=== PATIENT | female | born 1960 | race Caucasian/White ===

== ENCOUNTER 2017-06-22 05:25 | Inpatient (IN) | payer OTHER ==
[~2017-06-22] VITALS: Ht 167.6 cm; Wt 83.9 kg
[2017-06-22] VITALS (12 sets, daily range): BP systolic 98–135; BP diastolic 48–98
--- NOTE | ~2017-06-22 | EKG ---
[place], [place] ELECTROCARDIOGRAM REPORT NAME: PATRICE AGUILA UNIT #: [id number] ROOM: [facility] DOCTOR: DASHAWN VALENTIN,DONALD BIRTHDATE: [birth year] DOS: 06/23/2017 TIME: 1718 hours IMPRESSION: 1. Sinus rhythm. 2. Lateral ST-T changes. 3. Prolonged QT interval. DONALD TAMEZ MD CM:EKGRPT:ELECTROCARDIOGRAM REPORT [id number] DONALD TAMEZ MD
--- NOTE | ~2017-06-22 | PR ---
[place], [place] PROGRESS NOTE NAME: PATRICE AGUILA UNIT #: [id number] ROOM: 502 DOCTOR: DASHAWN VALENTIN,DONALD BIRTHDATE: [birth year] DOS: 06/23/2017 REASON FOR VISIT: Atrial fibrillation and valvular heart disease. HISTORY OF PRESENT ILLNESS: The patient is feeling better. Denies any chest pain or shortness of breath. No palpitations, no dizziness. No orthopnea, no PND. No nausea, vomiting. No fever and chills. REVIEW OF SYSTEMS: Review of the 8 systems negative except as mentioned above. RHYTHM STRIPS: The patient was in sinus rhythm. PHYSICAL EXAMINATION: VITAL SIGNS: Blood pressure 104/62, pulse 84, respirations 16. GENERAL: Alert, comfortable, in no acute distress. NECK: Supple, no distended neck veins, no carotid bruit. CHEST: Symmetrical, nontender. LUNGS: Clear to auscultation bilaterally. HEART: Regular rhythm, no S3. Grade I-II/ systolic murmur as well as grade 1/6 mid diastolic murmur. ABDOMEN: Nontender. Bowel sounds normal. EXTREMITIES: Showed no edema. Distal pulses are palpable. SKIN: Warm and dry. No cyanosis, no clubbing. NEUROLOGIC: The patient is alert, oriented. No focal neurologic deficit. MEDICATIONS AND ALLERGIES: Reviewed. IMPRESSION: 1. Atrial fibrillation, new onset, in sinus rhythm, CHADS2-VASc score of 2. She was on Coumadin. 2. Valvular heart disease, mild mitral stenosis and phgd-yo-bbwxkmgn mitral regurgitation. 3. Mild LV dysfunction with EF 35-40%, no acute heart failure. RECOMMENDATIONS: 1. Continue current medication. Blood pressure and heart rates are stable. 2. INR goal of 2-3. She cannot take ____ due to her valvular heart disease. 3. She can ____ and arrange for home Lovenox. She can be discharged home on Sunday on home Lovenox until INR greater than 2. ____ recommended cardiac MRI. This will be done as an outpatient. Also consider outpatient stress test. [place], [place] PROGRESS NOTE NAME: PATRICE AGUILA UNIT #: [id number] ROOM: [facility] DOCTOR: DONALD TAMEZ MD BIRTHDATE: [birth year] DONALD TAMEZ MD CM:PNTRANS [phone] DONALD TAMEZ MD 06/23/17 222 interface
--- NOTE | ~2017-06-22 | PR ---
[place], [place] PROGRESS NOTE [id number] UNIT #: [id number] ROOM: 502 DOCTOR: DASHAWN VALENTINYENINancy BIRTHDATE: [birth year] DOS: 06/24/2017 REASON FOR VISIT: Atrial fibrillation and cardiomyopathy. HISTORY OF PRESENT ILLNESS: The patient is feeling better. Denies any chest pain, palpitations. She had some chest pain overnight and had some sublingual nitroglycerin. Denies any PND, no orthopnea, no nausea, vomiting, no fever and chills. REVIEW OF SYSTEMS: Review of the 8 systems negative except as mentioned above. RHYTHM STRIPS: The patient was in sinus rhythm. MEDICATIONS: Reviewed. PHYSICAL EXAMINATION: VITAL SIGNS: Reviewed. GENERAL: The patient is alert, oriented, in no acute distress. HEENT: Pupils are round and equal. No jaundice. NECK: Supple, no distended neck veins, no carotid bruit. CHEST: Symmetrical, nontender. LUNGS: Clear to auscultation bilaterally. HEART: Regular rhythm, no S3, grade 1-2/6 systolic murmur and a grade 1/6 mid systolic murmur. ABDOMEN: Not examined. EXTREMITIES: Showed no edema. Distal pulses are palpable. SKIN: Warm and dry. No cyanosis, no clubbing. NEUROLOGIC: The patient is alert, oriented. No focal neurologic deficit. IMPRESSION: 1. New-onset atrial fibrillation, in sinus rhythm. The patient was on Coumadin anticoagulation due to valvular heart disease and use of Lovenox bridging until INR 2.0 and higher. 2. LV dysfunction, possibly nonischemic. Continue her current medications including beta blockers. 3. Borderline elevation of troponin, possibly due to tachycardia. 4. Valvular heart disease with mitral stenosis, mitral regurgitation; rheumatic heart disease. RECOMMENDATIONS: Clinically, she appears to be stable. Blood pressure and heart rate are stable. Continue current medications. She can be discharged home today on Lovenox until INR is 2 or greater. She will be scheduled for outpatient cardiac MRI per Dr. Villa's recommendation for further evaluation and to rule out myocarditis or any structural heart disease. She advised to check her protime next Sunday and then daily until her INR was 2 or above. She will come to our Cardiology office at [facility] to get the prescription for outpatient cardiac MRI. [place], [place] PROGRESS NOTE NAME: PATRICE AGUILA UNIT #: [id number] ROOM: [facility] DOCTOR: DASHAWN VALENTIN,DONALD BIRTHDATE: [birth year] DONALD TAMEZ MD CM:PNBRADY [id number] DONALD TAMEZ MD 06/27/17 0650 interface
[2017-06-22 05:59] LABS: BASO % 0.5 % (0.0-1.0); EOS # 0.2 10*3/uL (0.0-0.4); EOS % 2.9 % (1.0-4.0); HEMATOCRIT 40.1 % (37.0-47.0); HEMOGLOBIN 13.2 g/dl (12.0-16.0); LYMPH # 2.7 10*3/uL (1.3-4.4); LYMPH % 33.5 % (27.0-41.0); MEAN CELL VOLUME 93.3 fl (81.0-99.0); MEAN CORPUSCULAR HGB 30.7 pg (27.0-31.0); MEAN CORPUSCULAR HGB CONC 32.9 g/dl (33.0-37.0); MEAN PLATELET VOLUME 9.7 fl (9.6-12.3); MONO # 0.4 10*3/uL (0.1-1.0); MONO % 4.4 % (3.0-9.0); NEUT # 4.7 10*3/uL (2.3-7.9); NEUT % 58.4 % (47.0-73.0); PLATELET COUNT AUTOMATED 342 10*3/uL (130-400); RED CELL DISTRI WIDTH 13.2 % (0-14.5)
[2017-06-22 06:14] LABS: ACT PARTIAL THROMBO TIME 28.8 SECONDS (20.8-31.5)
[2017-06-22 06:15] LABS: ALBUMIN 3.7 gm/dl (3.1-4.5); ALKALINE PHOSPHATASE 81 U/L (45-117); BUN 19 mg/dl (7-24); CHLORIDE 108 mmol/L (98-107); CREATININE 0.76 mg/dL (0.55-1.02); POTASSIUM 4.1 mmol/L (3.5-5.1); SGOT/AST 22 IU/L (3-35); SGPT/ALT 34 U/L (12-78); SODIUM 141 mmol/L (136-145); TOTAL PROTEIN 7.4 gm/dL (6.4-8.2)
[2017-06-22 06:24] LABS: TROPONIN I 0.065 ng/ml (<0.045)
--- NOTE | 2017-06-22 06:24 | NUR ---
DR NOTIFIED OF ELEVATED TROPONIN OF 0.065.
--- NOTE | 2017-06-22 06:43 | NUR ---
REPORT GIVEN TO SOMMER GÓMEZ
--- NOTE | 2017-06-22 07:09 | NUR ---
Time: 653 A 56 year old FEMALE admitted to 5E under services of INNA MERCHANT DO. Pt. arrived via bed from ER. Chief complaint: CHEST PAIN/SHORTNESS OF BREATHE. SOMMER NICHOLS
--- NOTE | 2017-06-22 07:44 | NUR ---
PHONED CONSULT IN FOR DR. MARTINEZ.
--- NOTE | 2017-06-22 07:48 | NUR ---
VERIFIED CARDIZEM DRIP ORDER WITH DR. SANTAMARIA.
[2017-06-22] MEDS ORDERED: ASPIRIN ADULT L81 M1 PO (07:59)
[2017-06-22] MEDS ORDERED: VITAMIN D-32000 UNI1 PO (07:59)
[2017-06-22] MEDS ORDERED: VITAMIN C1000 M5 PO (08:00)
--- NOTE | 2017-06-22 09:07 | NUR ---
PER DR. CALL, TITRATE CARDIZEM DRIP DOWN TO 4ML/HR. HEART RATE 77
--- NOTE | 2017-06-22 09:39 | NUR ---
SPOKE WITH DR. SANTAMARIA REGARDING TROPONIN LEVEL, HE SAID IT WAS NOT HIGH ENOUGH TO CALL CARDIO.
--- NOTE | 2017-06-22 09:44 | NUR ---
PATIENTS HEART RATE IS SR 90 WHILE AMBULATING TO THE BATHROOM.
--- NOTE | 2017-06-22 10:03 | NUR ---
CARDIZEM DRIP DISCONTINUED PER DR. CALL.
--- NOTE | 2017-06-22 12:29 | NUR ---
DR. SANTAMARIA NOTIFIED OF PATIENTS D-DIMER RESULT. NO NEW ORDERS.
[2017-06-22] MEDS ORDERED: XARELTO20 M1 PO (15:53)
--- NOTE | 2017-06-22 17:08 | NUR ---
PER DR. CALL, I ASKED THE PATIENT NOT TO LEAVE AMA UNTIL DR. MARTINEZ CAN TALK TO HER ABOUT THE ECHO REPORT. SHE WAS CALM AND COOPERATIVE.
--- NOTE | 2017-06-22 18:01 | NUR ---
PATIENT CHANGED HER MIND AND IS NOT GOING AMA, SHE IS STAYING FOR FURTHER TREATMENT.
[2017-06-23] VITALS: BP 107/61
--- NOTE | 2017-06-23 04:28 | NUR ---
AT THE PATIENT'S REQUEST, PRIMTED IMPRESSIONS OF THE PATIENTS ECHO, USX2, CXR, AND CTA WERE GIVEN TO SON. NO CONCERNS AT THIS TIME.
[2017-06-23 05:54] LABS: BASO # 0.1 10*3/uL (0.0-0.1); BASO % 0.9 % (0.0-1.0); EOS # 0.2 10*3/uL (0.0-0.4); EOS % 3.2 % (1.0-4.0); HEMATOCRIT 37.1 % (37.0-47.0); HEMOGLOBIN 12.2 g/dl (12.0-16.0); LYMPH # 1.8 10*3/uL (1.3-4.4); LYMPH % 32.8 % (27.0-41.0); MEAN CELL VOLUME 93.7 fl (81.0-99.0); MEAN CORPUSCULAR HGB 30.8 pg (27.0-31.0); MEAN CORPUSCULAR HGB CONC 32.9 g/dl (33.0-37.0); MEAN PLATELET VOLUME 9.9 fl (9.6-12.3); MONO # 0.4 10*3/uL (0.1-1.0); MONO % 6.4 % (3.0-9.0); NEUT # 3.2 10*3/uL (2.3-7.9); NEUT % 56.5 % (47.0-73.0); PLATELET COUNT AUTOMATED 278 10*3/uL (130-400); RED BLOOD COUNT 3.96 10*6/uL (4.10-5.10); RED CELL DISTRI WIDTH 12.9 % (0-14.5); WHITE BLOOD COUNT 5.6 10*3/uL (4.8-10.8)
[2017-06-23 06:14] LABS: ALBUMIN 3.4 gm/dl (3.1-4.5); BUN 14 mg/dl (7-24); CHLORIDE 107 mmol/L (98-107); CHOLESTEROL 194 mg/dL (<200); CREATININE 0.78 mg/dL (0.55-1.02); POTASSIUM 3.5 mmol/L (3.5-5.1); SGOT/AST 16 IU/L (3-35); SGPT/ALT 28 U/L (12-78); SODIUM 141 mmol/L (136-145)
[2017-06-23 06:16] LABS: ACT PARTIAL THROMBO TIME 33.4 SECONDS (20.8-31.5); INTERNATIONAL NORM RATIO 1.1 (2.0-3.5)
[2017-06-23 06:22] LABS: ALKALINE PHOSPHATASE 78 U/L (45-117); HDL CHOLESTEROL 49 mg/dl (40-60); LDL CHOLESTEROL 128 mg/dL (9-159); PHOSPHOROUS 3.7 mg/dL (2.5-4.9); TOTAL PROTEIN 6.8 gm/dL (6.4-8.2); TRIGLYCERIDES 86 mg/dl (<150); VLDL CHOLESTEROL 17 mg/dL (6-40)
--- NOTE | 2017-06-23 07:30 | NUR ---
Shift chart check completed.
[2017-06-23 08:00] VITALS: BP 96/62
[2017-06-23 10:35] VITALS: BP 168/72
[2017-06-23 12:00] VITALS: BP 104/62
[2017-06-23 16:00] VITALS: BP 105/56
--- NOTE | 2017-06-23 16:30 | NUR ---
NOTIFIED DR. JEFFREY OF PATIENTS C/O CHEST PAIN. VITALS 111/58 P64 NSR, R 18 SEE NEW ORDERS. I ALSO NOTIFIED DR. CALL REGARDING THE CHANGE IN PATIENTS SYMPTOMS.
--- NOTE | 2017-06-23 17:22 | NUR ---
DR. PÉREZ WAS NOTIFIED OF PATIENTS ELEVATED TROPONIN LEVEL. SEE NEW ORDERS
[2017-06-23 20:00] VITALS: BP 97/67
--- NOTE | 2017-06-23 20:22 | NUR ---
DR GUAN CONTACTED REGARDING ELEVATED TROPONINS, PATIENT ASYMPTOMATIC. NEW ORDERS RECEIVED
--- NOTE | 2017-06-23 21:00 | NUR ---
RESTING IN BED WATCHING TV. NO DISTRESS NOTED. RESPIRATIONS EASY. LUNGS DIMINISHED, CLEAR. PULSE OX 93% RA. DENIES CHEST PAIN. OFFERED AND EDUCATED REGARDING TEDS, DECLINED. CALL LIGHT WITHIN REACH. NO VOICED COMPLAINTS
[2017-06-24] VITALS: BP 111/51
--- NOTE | 2017-06-24 | NUR ---
SLEEPING, NO DISTRESS NOTED. RESPIRATIONS EASY. VSS. CALL LIGHT WITHIN REACH
--- NOTE | 2017-06-24 03:00 | NUR ---
SLEEPING. NO DISTRESS NOTED. RESPIRATIONS EASY. CALL LIGHT WITHIN REACH
[2017-06-24 05:57] LABS: BASO % 0.6 % (0.0-1.0); EOS # 0.2 10*3/uL (0.0-0.4); EOS % 3.1 % (1.0-4.0); HEMATOCRIT 39.9 % (37.0-47.0); HEMOGLOBIN 13.3 g/dl (12.0-16.0); LYMPH # 2.5 10*3/uL (1.3-4.4); LYMPH % 39.6 % (27.0-41.0); MEAN CELL VOLUME 92.8 fl (81.0-99.0); MEAN CORPUSCULAR HGB 30.9 pg (27.0-31.0); MEAN CORPUSCULAR HGB CONC 33.3 g/dl (33.0-37.0); MEAN PLATELET VOLUME 9.9 fl (9.6-12.3); MONO # 0.4 10*3/uL (0.1-1.0); MONO % 6.3 % (3.0-9.0); NEUT # 3.2 10*3/uL (2.3-7.9); NEUT % 50.1 % (47.0-73.0); PLATELET COUNT AUTOMATED 302 10*3/uL (130-400); RED CELL DISTRI WIDTH 12.8 % (0-14.5); WHITE BLOOD COUNT 6.4 10*3/uL (4.8-10.8)
--- NOTE | 2017-06-24 06:00 | NUR ---
SLEPT THROUGHOUT NIGHT WITH NO DISTRESS NOTED. RESPIRATIONS EASY. NO C/O CHEST PAIN. CALL LIGHT WITHIN REACH. NO VOICED COMPLAINTS THIS SHIFT
[2017-06-24 06:28] LABS: ALBUMIN 3.6 gm/dl (3.1-4.5); ALKALINE PHOSPHATASE 80 U/L (45-117); BUN 18 mg/dl (7-24); CHLORIDE 107 mmol/L (98-107); CREATININE 0.81 mg/dL (0.55-1.02); POTASSIUM 3.8 mmol/L (3.5-5.1); SGOT/AST 17 IU/L (3-35); SGPT/ALT 27 U/L (12-78); SODIUM 141 mmol/L (136-145); TOTAL PROTEIN 7.2 gm/dL (6.4-8.2)
[2017-06-24 06:35] LABS: INTERNATIONAL NORM RATIO 1.1 (2.0-3.5)
[2017-06-24 08:00] VITALS: BP 100/56; BP 98/50
--- NOTE | 2017-06-24 11:22 | NUR ---
PATIENT EDUCATED ON HOW TO GIVE LOVENOX INJECTION. SHE SELF ADMINISTERED MORNING DOSE.
[2017-06-24 12:00] VITALS: BP 116/62
--- NOTE | 2017-06-24 13:59 | NUR ---
CONTACTED [facility], PATIENTS PREFERRED PHARM AND LOVENOX 80MG INJECTIONS ARE AVAILABLE.
--- NOTE | 2017-06-24 14:00 | NUR ---
LOVENOX PRESCRIPTION WAS CALLED INTO [facility] [address] AND PATIENTS SISTER PICKED IT UP BEFORE PHARMACY CLOSED; DUE TO HOLIDAY.
[2017-06-24 16:00] VITALS: BP 97/63
--- NOTE | 2017-06-24 17:58 | NUR ---
Discharge instructions reviewed with patient/family. Patient receptive and verbalizes understanding. Follow-up care arranged. Written instructions given to patient/family. ROMEL MATTHEWS
== END 2017-06-24 17:58 | disposition home or self-care (01) | DRG 310 ==
LOC: ED 05:25 → EDHOLD 06:34 → 5E 06:38
PROVIDERS: Family Medicine; Internal Medicine; Student in an Organized Health Care Education/Training Program; ADMIT Emergency Medicine
DX: I48.0 Paroxysmal atrial fibrillation (principal); E87.8 Other disorders of electrolyte and fluid balance, not elsewhere classified; R07.89 Other chest pain; I48.92 Unspecified atrial flutter; R00.0 Tachycardia, unspecified; F41.9 Anxiety disorder, unspecified; I34.0 Nonrheumatic mitral (valve) insufficiency; Z88.2 Allergy status to sulfonamides; Z79.82 Long term (current) use of aspirin; Z79.899 Other long term (current) drug therapy; Z90.710 Acquired absence of both cervix and uterus; Z98.51 Tubal ligation status; Z80.9 Family history of malignant neoplasm, unspecified

== ENCOUNTER → 2017-07-03 | Outpatient (CLI) | payer OTHER ==
[~2017-07-03] MED LIST: ASPIRIN ADULT L81 M1 PO; VITAMIN C1000 M5 PO; VITAMIN D-32000 UNI1 PO; XARELTO20 M1 PO
[2017-07-03 08:34] LABS: INTERNATIONAL NORM RATIO 1.6 (2.0-3.5)
== END | disposition home or self-care (01) ==
LOC: LAB 08:11
PROVIDERS: Internal Medicine Cardiovascular Disease
DX: I48.91 Unspecified atrial fibrillation (principal)

== ENCOUNTER 2017-07-12 07:11 | Inpatient (IN) | payer OTHER ==
[2017-07-12] VITALS (10 sets, daily range): BP systolic 97–135; BP diastolic 52–701
[~2017-07-12] VITALS: Ht 167.6 cm; Wt 81.9 kg
--- NOTE | ~2017-07-12 | PR ---
[place], [place] PROGRESS NOTE NAME: [id number] UNIT #: [id number] ROOM: 425 DOCTOR: HOANG MARTINEZ MD BIRTHDATE: [birth year] DOS: 07/14/2017 SUBJECTIVE: The patient was seen at her bedside in the intensive care unit on 07/14/2017. She tells me that she does not feel badly today, but her blood pressure and heart rate are still marginal. Her cultures are positive for influenza A and she is being treated for that. Hopefully, this will improve our ability to manage her heart rate and blood pressure as her influenza comes under control. PHYSICAL EXAMINATION: VITAL SIGNS: Today, her pulse is 110 and irregularly irregular, blood pressure is 90/50. She has temperature of 99. She weighs 80.9 kg and has body mass index 28.8. NECK: Supple. She has no jugular distention. Carotids are full. LUNGS: Respirations are unlabored. She has decreased breath sounds at the bases, but no rales. HEART: Has an irregularly irregular rhythm without murmurs or gallops. ABDOMEN: Benign. EXTREMITIES: Showed no edema. Her chest x-ray does show considerable clearing of a right lower lobe infiltrate. LABORATORY DATA: Hemoglobin is 13.5, white count 11,100, platelet count 345,000. INR today 3.3. ABG today pH 7.49, pCO2 of 30, pO2 of 88.5. Monitor does show atrial fibrillation with rapid ventricular response. IMPRESSION: 1. Atrial fibrillation with rapid ventricular response. 2. Valvular heart disease. Echocardiographic features are consistent with rheumatic fever and rheumatic mitral valve disease. 3. Cardiomyopathy, etiology to be determined, but possibly related to heart rate or rheumatic disease. 4. Elevated troponin. Pattern is not suggestive of acute myocardial infarction and probably represents myocardial injury from demand ischemia. PLAN: I will withhold her warfarin for today since she is on amiodarone and this may lead to a marked elevation in INR. We will continue amiodarone intravenously for 1 more day and continue metoprolol twice a day to help control rate along with the amiodarone. She has been started on Tamiflu. We will continue to observe her in the ICU and we thank the hospitalist physicians for asking our advice regarding her care. [place], [place] PROGRESS NOTE NAME: PATRICE AGUILA UNIT #: [id number] ROOM: 425 DOCTOR: HOANG MARTINEZ MD BIRTHDATE: [birth year] HOANG MARTINEZ MD CM:PNTRANS [phone] HOANG MARTINEZ MD 07/16/17 1553 interface
--- NOTE | ~2017-07-12 | PR ---
[place], [place] PROGRESS NOTE [id number] UNIT #: [id number] ROOM: 425 DOCTOR: HOANG MARTINEZ MD BIRTHDATE: [birth year] DOS: 07/18/2017 SUBJECTIVE: The patient was seen at her bedside today, 07/18/2017 for followup of her atrial fibrillation with rapid ventricular response. She still feels tired and does have palpitations. Her blood pressure remains marginal and she does have frequent episodes of atrial fibrillation and flutter with a rapid ventricular response. Today, we did do a repeat echocardiogram to reassess left ventricular function. She continues to have left ventricular systolic chamber dilation, although her diastolic diameter remains about 5.6 cm, where it was a month ago. She remains globally hypokinetic with an ejection fraction between 35 and 40% and again this is unchanged from previously. Her mitral valve continues to have an appearance suggesting a rheumatic disease and she has mild mitral insufficiency. PHYSICAL EXAMINATION: VITAL SIGNS: Today her pulse is varying from 100 to 150, it is irregular, blood pressure is 98/74 She is afebrile. NECK: Supple. She has no jugular distention. CHEST: Has decreased breath sounds with a few crackles at the bases. HEART: Has an irregularly irregular rhythm without murmur or gallop. ABDOMEN: Benign. EXTREMITIES: Showed no edema. IMPRESSION: 1. Atrial fibrillation with rapid ventricular response. 2. Valvular heart disease. Her echocardiogram remains consistent with rheumatic valvular disease. 3. Cardiomyopathy. Ejection fraction remains between 35 and 40%. This may be related to a tachy-myopathy or rheumatic heart disease. 4. Influenza, which is being treated with Tamiflu. PLAN: I have spoken to an medical translator in our practice, Dr. Wesley Heart. He states that since the patient has already been placed on amiodarone that we will probably need amiodarone to control her going forward. He hypothesized that some of her instability may be related to her recent viral infection with influenza. He is hoping that we can stabilize her with amiodarone and then stop the drug. His eventual plan would be to consider dofetilide or atrial fibrillation ablation. For now, we will stop the digoxin, but continue diltiazem and metoprolol. We will start her on an oral loading dose of amiodarone 400 mg 3 times a day with food. If after 3 or 4 days she has not converted, we can discuss the possibility of an electrical cardioversion. We will refer her to see Dr. Wesley Heart as an outpatient after her discharge. [place], [place] PROGRESS NOTE NAME: PATRICE AGUILA UNIT #: [id number] ROOM: 425 DOCTOR: HOANG MARTINEZ MD BIRTHDATE: [birth year] HOANG MARTINEZ MD CM:PNTRANS 30 25 HOANG MARTINEZ MD 07/18/172024 interface
--- NOTE | ~2017-07-12 | PR ---
[place], [place] PROGRESS NOTE [id number] UNIT #: [id number] ROOM: 425 DOCTOR: DASHAWN VALENTIN,YENINancy BIRTHDATE: [birth year] DOS: 07/21/2017 REASON FOR VISIT: Atrial fibrillation. SUBJECTIVE: The patient is comfortable. Denies any chest pain or shortness of breath. No dizziness. No orthopnea. No cough or hemoptysis. REVIEW OF SYSTEMS: Review of the 8 systems negative except as mentioned above. RHYTHM STRIPS: The patient is in sinus rhythm, sinus bradycardia. PHYSICAL EXAMINATION: VITAL SIGNS: Blood pressure 107/62, pulse 50, respirations 18, weight 81.9 kg. GENERAL: Alert, comfortable, in no acute distress. NECK: Supple, no distended neck veins, no carotid bruit. CHEST: Symmetrical, nontender. HEENT: Pupils round, equal. No jaundice. Tongue was moist and pharynx was clear. CHEST: Symmetrical, nontender. LUNGS: Clear to auscultation bilaterally. HEART: Regular rhythm, no S3. Grade 1/6 systolic murmur. ABDOMEN: Benign. Bowel sounds normal. EXTREMITIES: Showed no edema. Distal pulses are palpable. SKIN: Warm and dry. No cyanosis, no clubbing. NEUROLOGIC: The patient is alert, oriented. No focal neurologic deficit. RECTAL: Deferred. Medications and labs reviewed. INR 2.8. IMPRESSION: 1. Paroxysmal atrial fibrillation, the patient is in sinus rhythm. Continue her p.o. amiodarone at 400 b.i.d. for a week and then decrease to mg b.i.d. and her INR is therapeutic at 2.8 mg. 2. Sinus bradycardia, asymptomatic, we will keep her off any beta blockers or Cardizem. 3. Left ventricular dysfunction, EF 35-40% by echo, no acute heart failure. RECOMMENDATIONS: 1. We will continue above medications. 2. She can be discharged home from the cardiac standpoint. 3. She is to follow up with us in 1-2 weeks. 4. We will check her PT/INR on coming Sunday. 5. She will follow up with the sleep technologist at our [place] office for further management of atrial fibrillation. 6. Above treatment discussed with the patient and all questions answered. [place], [place] PROGRESS NOTE NAME: PATRICE AGUILA UNIT #: [id number] ROOM: 425 DOCTOR: DONALD TAMEZ MD BIRTHDATE: [birth year] DONALD TAMEZ MD CM:PNBRADY [phone] DONALD TAMEZ MD 07/22/17 0623 interface
--- NOTE | ~2017-07-12 | PR ---
[place], [place] PROGRESS NOTE NAME: [facility]: [id number] UNIT #: [id number] ROOM: 425 DOCTOR: HOANG MARTINEZ MD BIRTHDATE: [birth year] DOS: 07/15/2017 SUBJECTIVE: The patient was seen at her bedside today, 07/15/2017 for followup of her atrial fibrillation and cardiomyopathy. Overnight, she did convert to sinus rhythm and feels considerably better now. She is bradycardic with a heart rate of 50. This is likely due to the combination of amiodarone and her beta italo. Amiodarone is being stopped. Blood pressure remains marginal. She does, however, feel better and denies lightheadedness or chest pain. PHYSICAL EXAMINATION: VITAL SIGNS: Today her pulse is 52 and regular, blood pressure is 83/41. She is afebrile. She weighs 81.9 kg and has a body mass index of 29.1. HEENT: Normocephalic and atraumatic. Extraocular muscles are intact. Sclerae are clear. Pupils are equal, round and react to light. The oral mucosa is moist. Tongue is midline. NECK: Supple. She has no jugular distention. Carotids are full without bruits. She has no neck or supraclavicular masses. LUNGS: Respirations are unlabored. She has a few crackles at the bases, but no rales. HEART: Has a regular rhythm with a fourth heart sound, but no third heart sound or murmur. ABDOMEN: Soft and normally active. EXTREMITIES: Showed no edema. LABORATORY DATA: Today show hemoglobin of 12.1 with hematocrit of 37.6. There are 8200 white cells and 271,000 platelets present. Sodium is 137, potassium 3.4, BUN 15, creatinine 0.96. INR is 3.5. IMPRESSION: 1. Atrial fibrillation with rapid ventricular response. The patient has converted to sinus rhythm while on an amiodarone drip. 2. Valvular heart disease. She does have echocardiographic features consistent with rheumatic fever and rheumatic mitral valve disease. 3. Cardiomyopathy, etiology to be determined, possibly related to her heart rate or rheumatic heart disease. 4. Elevation of troponin levels. The pattern is not suggestive of an acute myocardial infarction and probably represents myocardial injury from demand ischemia or myocarditis. PLAN: We will continue to withhold her warfarin for today since her INR remains elevated at 3.5. Amiodarone has been stopped. We will continue her metoprolol as tolerated by her blood pressure. She will be followed on the telemetry unit and plans are made for her to undergo a cardiac MRI in the near future if we can discharge her from the hospital prior to that. I do thank the hospitalist physicians for asking our advice regarding her care. [place], [place] PROGRESS NOTE NAME: PATRICE AGUILA UNIT #: [id number] ROOM: 425 DOCTOR: HOANG MARTINEZ MD BIRTHDATE: [birth year] HOANG MARTINEZ MD CM:PNTRANS 1518 32 HOANG MARTINEZ MD 07/15/171832 interface
--- NOTE | ~2017-07-12 | PR ---
[place], [place] PROGRESS NOTE NAME: PATRICE AGUILA UNIT #: [id number] ROOM: 425 DOCTOR: HOANG MARTINEZ MD BIRTHDATE: [birth year] DOS: 07/16/2017 SUBJECTIVE: The patient was seen at her bedside today, 07/16/2017 for followup of her paroxysmal atrial fibrillation and flutter with probable rheumatic heart disease. Yesterday, she was feeling quite well and had gone back into sinus rhythm, but today she is back in fibrillation and flutter. She is back on a diltiazem drip and feels poorly. She denies any chest pain, but just feels "blah." She denies palpitations, chest pain, orthopnea or PND. Her vital signs seem more stable today. PHYSICAL EXAMINATION: VITAL SIGNS: Her pulse is 130 and irregularly irregular, blood pressure is 100/87. She is afebrile. NECK: Supple. She has no jugular distention. Carotids are full. LUNGS: Respirations are unlabored. She has crackles at the bases, but her lungs are otherwise clear. She has no presacral edema. HEART: Has an irregularly irregular rhythm. I heard no murmurs or gallops. ABDOMEN: Soft and normally active. EXTREMITIES: Showed no edema. IMPRESSION: 1. Atrial fibrillation with rapid ventricular response. This has recurred again despite the patient receiving a loading dose of amiodarone. 2. Valvular heart disease. The patient has echocardiographic features consistent with rheumatic fever and rheumatic valve disease. 3. Cardiomyopathy, etiology to be determined. This may be related to heart rate or rheumatic heart disease. 4. Elevation of troponin levels. Pattern is not suggestive of an acute myocardial infarction and probably represents myocardial injury from demand ischemia or myocarditis. PLAN: I will resume her warfarin since her INR is now 1.7. We will attempt to control her rate with diltiazem and digoxin. If she does not become easier to control soon and if she completes her course of therapy for influenza without much benefit, I will speak to her about the possibility of being transferred to [facility] for EP evaluation and care. I thank the hospitalist physicians for asking our advice regarding her management. [place], [place] PROGRESS NOTE NAME: APTRICE AGUILA UNIT #: [id number] ROOM: 425 DOCTOR: HOANG MARTINEZ MD BIRTHDATE: [birth year] HOANG MARTINEZ MD CM:PNTRANS [phone] 04 HOANG MARTINEZ MD 07/16/175 interface
[2017-07-12] MEDS ORDERED: COREG3.125 MG PO (07:21)
[2017-07-12] MEDS ORDERED: WARFARIN SOD5 MG PO (07:22)
[2017-07-12] MEDS ORDERED: COUMADIN7.5 M1 PO (07:22)
[2017-07-12] MEDS ORDERED: CO Q10100 MG PO (07:23)
[2017-07-12 08:05] LABS: BASO # 0.1 10*3/uL (0.0-0.1); BASO % 0.6 % (0.0-1.0); EOS # 0.2 10*3/uL (0.0-0.4); EOS % 2.8 % (1.0-4.0); HEMATOCRIT 37.7 % (37.0-47.0); HEMOGLOBIN 12.4 g/dl (12.0-16.0); LYMPH # 2.2 10*3/uL (1.3-4.4); LYMPH % 27.5 % (27.0-41.0); MEAN CELL VOLUME 92.2 fl (81.0-99.0); MEAN CORPUSCULAR HGB 30.3 pg (27.0-31.0); MEAN CORPUSCULAR HGB CONC 32.9 g/dl (33.0-37.0); MEAN PLATELET VOLUME 9.3 fl (9.6-12.3); MONO # 0.4 10*3/uL (0.1-1.0); MONO % 5.2 % (3.0-9.0); NEUT % 63.5 % (47.0-73.0); PLATELET COUNT AUTOMATED 406 10*3/uL (130-400); RED BLOOD COUNT 4.09 10*6/uL (4.10-5.10); RED CELL DISTRI WIDTH 12.8 % (0-14.5); WHITE BLOOD COUNT 7.9 10*3/uL (4.8-10.8)
[2017-07-12 08:22] LABS: ALBUMIN 3.1 gm/dl (3.1-4.5); ALKALINE PHOSPHATASE 82 U/L (45-117); BUN 14 mg/dl (7-24); CHLORIDE 109 mmol/L (98-107); CREATININE 0.75 mg/dL (0.55-1.02); SGOT/AST 22 IU/L (3-35); SGPT/ALT 36 U/L (12-78); SODIUM 143 mmol/L (136-145); TOTAL PROTEIN 6.8 gm/dL (6.4-8.2)
[2017-07-12 08:34] LABS: INTERNATIONAL NORM RATIO 2.3 (2.0-3.5)
[2017-07-12] MEDS ORDERED: NITROGLYCERIN0.4 MG SL (09:37)
[2017-07-13] VITALS (12 sets, daily range): BP systolic 87–122; BP diastolic 33–84
[2017-07-13 05:43] LABS: ALBUMIN 3.3 gm/dl (3.1-4.5); ALKALINE PHOSPHATASE 88 U/L (45-117); BUN 12 mg/dl (7-24); CHLORIDE 105 mmol/L (98-107); CREATININE 0.82 mg/dL (0.55-1.02); PHOSPHOROUS 3.3 mg/dL (2.5-4.9); POTASSIUM 3.9 mmol/L (3.5-5.1); SGOT/AST 14 IU/L (3-35); SGPT/ALT 31 U/L (12-78); SODIUM 141 mmol/L (136-145)
[2017-07-13 06:11] LABS: BASO # 0.1 10*3/uL (0.0-0.1); BASO % 0.4 % (0.0-1.0); EOS # 0.2 10*3/uL (0.0-0.4); EOS % 1.9 % (1.0-4.0); HEMATOCRIT 39.4 % (37.0-47.0); HEMOGLOBIN 12.9 g/dl (12.0-16.0); LYMPH # 1.7 10*3/uL (1.3-4.4); LYMPH % 14.9 % (27.0-41.0); MEAN CELL VOLUME 91.6 fl (81.0-99.0); MEAN CORPUSCULAR HGB CONC 32.7 g/dl (33.0-37.0); MEAN PLATELET VOLUME 9.6 fl (9.6-12.3); MONO # 0.5 10*3/uL (0.1-1.0); MONO % 4.8 % (3.0-9.0); NEUT # 8.7 10*3/uL (2.3-7.9); NEUT % 77.6 % (47.0-73.0); PLATELET COUNT AUTOMATED 416 10*3/uL (130-400); RED CELL DISTRI WIDTH 12.9 % (0-14.5); WHITE BLOOD COUNT 11.2 10*3/uL (4.8-10.8)
[2017-07-13 06:32] LABS: ACT PARTIAL THROMBO TIME 37.8 SECONDS (20.8-31.5); INTERNATIONAL NORM RATIO 2.7 (2.0-3.5)
[2017-07-13] MEDS ORDERED: LOPRESSOR50 M1 PO (10:51)
[2017-07-14] VITALS (13 sets, daily range): BP systolic 88–127; BP diastolic 37–718
[2017-07-14 05:54] LABS: HEMATOCRIT 40.3 % (37.0-47.0); HEMOGLOBIN 13.5 g/dl (12.0-16.0); MEAN CELL VOLUME 91.8 fl (81.0-99.0); MEAN CORPUSCULAR HGB 30.8 pg (27.0-31.0); MEAN CORPUSCULAR HGB CONC 33.5 g/dl (33.0-37.0); MEAN PLATELET VOLUME 9.2 fl (9.6-12.3); PLATELET COUNT AUTOMATED 345 10*3/uL (130-400); RED BLOOD COUNT 4.39 10*6/uL (4.10-5.10); RED CELL DISTRI WIDTH 12.9 % (0-14.5); WHITE BLOOD COUNT 11.1 10*3/uL (4.8-10.8)
[2017-07-14 06:20] LABS: ALBUMIN 3.5 gm/dl (3.1-4.5); ALKALINE PHOSPHATASE 86 U/L (45-117); BUN 12 mg/dl (7-24); CHLORIDE 100 mmol/L (98-107); CREATININE 0.85 mg/dL (0.55-1.02); POTASSIUM 3.7 mmol/L (3.5-5.1); SGOT/AST 17 IU/L (3-35); SGPT/ALT 29 U/L (12-78); SODIUM 138 mmol/L (136-145); TOTAL PROTEIN 7.7 gm/dL (6.4-8.2)
[2017-07-14 06:31] LABS: TOTAL CELLS COUNTED 100 #CELLS
[2017-07-14 06:32] LABS: PLATELET SUFFICIENCY NORMAL (NORMAL)
[2017-07-14 06:36] LABS: INTERNATIONAL NORM RATIO 3.3 (2.0-3.5)
[2017-07-14 09:02] LABS: ABG BASE EXCESS 1.1 mmol/L (-2.0-2.0); ABG HCO3 22.4 mmol/l (22-26); ABG O2 SATURATION 96.9 % (95-97); ARTERIAL BLOOD GAS PH 7.494 (7.35-7.45); ARTERIAL BLOOD GAS PO2 88.5 mmHg (80-90)
[2017-07-14 09:57] LABS: BILIRUBIN NEGATIVE (NEGATIVE); BLOOD 3+ (NEGATIVE); CLARITY CLOUDY (CLEAR); COLOR YELLOW (YELLOW); GLUCOSE NEGATIVE (NEGATIVE); KETONE NEGATIVE (NEGATIVE); LEUKO ESTERASE TRACE (NEGATIVE); NITRITE NEGATIVE (NEGATIVE); SPECIFIC GRAVITY >= 1.030 (1.005-1.030)
[2017-07-14 11:02] LABS: RBC TNTC rbc/hpf (0-2)
[2017-07-14 11:03] LABS: EPITHELIAL CELLS 15-20; WBC 21-30 wbc/hpf (0-5)
[2017-07-14 11:04] LABS: BACTERIA 2+; MUCOUS 1+
[2017-07-15] VITALS (9 sets, daily range): BP systolic 83–109; BP diastolic 41–56
[2017-07-15 05:09] LABS: BASO % 0.2 % (0.0-1.0); EOS % 0.1 % (1.0-4.0); HEMATOCRIT 37.6 % (37.0-47.0); HEMOGLOBIN 12.1 g/dl (12.0-16.0); LYMPH # 1.3 10*3/uL (1.3-4.4); LYMPH % 15.4 % (27.0-41.0); MEAN CELL VOLUME 92.8 fl (81.0-99.0); MEAN CORPUSCULAR HGB 29.9 pg (27.0-31.0); MEAN CORPUSCULAR HGB CONC 32.2 g/dl (33.0-37.0); MEAN PLATELET VOLUME 9.4 fl (9.6-12.3); MONO # 0.8 10*3/uL (0.1-1.0); MONO % 9.4 % (3.0-9.0); NEUT # 6.1 10*3/uL (2.3-7.9); NEUT % 74.5 % (47.0-73.0); PLATELET COUNT AUTOMATED 271 10*3/uL (130-400); RED BLOOD COUNT 4.05 10*6/uL (4.10-5.10); RED CELL DISTRI WIDTH 13.3 % (0-14.5); WHITE BLOOD COUNT 8.2 10*3/uL (4.8-10.8)
[2017-07-15 05:20] LABS: INTERNATIONAL NORM RATIO 3.5 (2.0-3.5)
[2017-07-15 05:23] LABS: BUN 15 mg/dl (7-24); CHLORIDE 101 mmol/L (98-107); CREATININE 0.96 mg/dL (0.55-1.02); POTASSIUM 3.4 mmol/L (3.5-5.1); SODIUM 137 mmol/L (136-145)
[2017-07-16] VITALS: BP 139/79
[2017-07-16 07:18] LABS: BASO % 0.5 % (0.0-1.0); EOS % 0.7 % (1.0-4.0); HEMATOCRIT 36.3 % (37.0-47.0); HEMOGLOBIN 11.7 g/dl (12.0-16.0); LYMPH # 1.3 10*3/uL (1.3-4.4); MEAN CELL VOLUME 92.1 fl (81.0-99.0); MEAN CORPUSCULAR HGB 29.7 pg (27.0-31.0); MEAN CORPUSCULAR HGB CONC 32.2 g/dl (33.0-37.0); MEAN PLATELET VOLUME 9.4 fl (9.6-12.3); MONO # 0.5 10*3/uL (0.1-1.0); MONO % 8.1 % (3.0-9.0); NEUT # 3.9 10*3/uL (2.3-7.9); NEUT % 67.5 % (47.0-73.0); PLATELET COUNT AUTOMATED 297 10*3/uL (130-400); RED BLOOD COUNT 3.94 10*6/uL (4.10-5.10); RED CELL DISTRI WIDTH 13.3 % (0-14.5); WHITE BLOOD COUNT 5.8 10*3/uL (4.8-10.8)
[2017-07-16 07:50] LABS: BUN 17 mg/dl (7-24); CHLORIDE 103 mmol/L (98-107); CREATININE 0.77 mg/dL (0.55-1.02); POTASSIUM 3.7 mmol/L (3.5-5.1); SODIUM 139 mmol/L (136-145)
[2017-07-16 07:51] LABS: INTERNATIONAL NORM RATIO 1.7 (2.0-3.5)
[2017-07-16 08:00] VITALS: BP 100/87
[2017-07-16 12:00] VITALS: BP 95/67
[2017-07-16 16:00] VITALS: BP 90/68
[2017-07-16 20:00] VITALS: BP 107/68
[2017-07-17] VITALS: BP 110/68
[2017-07-17 08:00] VITALS: BP 103/68
[2017-07-17 08:43] LABS: INTERNATIONAL NORM RATIO 1.6 (2.0-3.5)
[2017-07-17 08:45] LABS: HEMATOCRIT 41.7 % (37.0-47.0); MEAN CELL VOLUME 92.5 fl (81.0-99.0); MEAN CORPUSCULAR HGB 30.8 pg (27.0-31.0); MEAN CORPUSCULAR HGB CONC 33.3 g/dl (33.0-37.0); MEAN PLATELET VOLUME 9.5 fl (9.6-12.3); PLATELET COUNT AUTOMATED 354 10*3/uL (130-400); RED BLOOD COUNT 4.51 10*6/uL (4.10-5.10); RED CELL DISTRI WIDTH 13.2 % (0-14.5); WHITE BLOOD COUNT 6.2 10*3/uL (4.8-10.8)
[2017-07-17 08:47] LABS: HEMOGLOBIN 13.9 g/dl (12.0-16.0)
[2017-07-17 08:49] LABS: BUN 14 mg/dl (7-24); CHLORIDE 106 mmol/L (98-107); CREATININE 0.77 mg/dL (0.55-1.02); POTASSIUM 3.8 mmol/L (3.5-5.1); SODIUM 138 mmol/L (136-145)
[2017-07-17 09:15] LABS: ATYPICAL LYMPHS 5 % (0-0); PLATELET SUFFICIENCY NORMAL (NORMAL); TOTAL CELLS COUNTED 100 #CELLS
[2017-07-17 10:53] VITALS: BP 104/62
[2017-07-17 14:39] VITALS: BP 102/58
[2017-07-17 16:07] LABS: LEGIONELLA URINARY ANTIGEN Negative (Negative)
[2017-07-17 18:08] VITALS: BP 100/64
[2017-07-17 19:43] VITALS: BP 90/49
[2017-07-18] VITALS (7 sets, daily range): BP systolic 98–111; BP diastolic 50–80
[2017-07-18 07:43] LABS: INTERNATIONAL NORM RATIO 1.8 (2.0-3.5)
[2017-07-19] VITALS: BP 104/74
[2017-07-19 08:06] LABS: INTERNATIONAL NORM RATIO 2.1 (2.0-3.5)
[2017-07-19 09:00] VITALS: BP 102/60
[2017-07-19 12:00] VITALS: BP 110/70
[2017-07-19 16:00] VITALS: BP 99/63
[2017-07-19 20:00] VITALS: BP 110/59
[2017-07-20] VITALS: BP 105/61
[2017-07-20 07:48] LABS: INTERNATIONAL NORM RATIO 2.5 (2.0-3.5)
[2017-07-20 08:00] VITALS: BP 101/56
[2017-07-20 12:00] VITALS: BP 107/59
[2017-07-20 16:00] VITALS: BP 104/67
[2017-07-20 20:00] VITALS: BP 106/59
[2017-07-21] VITALS: BP 115/74
[2017-07-21 04:00] VITALS: BP 99/64
[2017-07-21 08:00] VITALS: BP 107/62
[2017-07-21 08:13] LABS: INTERNATIONAL NORM RATIO 2.8 (2.0-3.5)
[2017-07-21 12:00] VITALS: BP 100/69
[2017-07-21] MEDS ORDERED: AMIODARONE HCL200 MG PO (16:01)
[2017-07-21] MEDS ORDERED: COUMADIN3 M1 PO (16:01)
== END 2017-07-21 16:46 | disposition home or self-care (01) | DRG 871 ==
LOC: ED 07:11 → EDHOLD 08:27 → ICCU 08:27 → 4E 07-15 13:24
PROVIDERS: Emergency Medicine; Family Medicine; Internal Medicine; Internal Medicine Cardiovascular Disease; Internal Medicine Hospice and Palliative Medicine
DX: A41.9 Sepsis, unspecified organism (principal); J96.01 Acute respiratory failure with hypoxia; I50.43 Acute on chronic combined systolic (congestive) and diastolic (congestive) heart failure; J81.0 Acute pulmonary edema; I42.9 Cardiomyopathy, unspecified; E87.8 Other disorders of electrolyte and fluid balance, not elsewhere classified; I95.9 Hypotension, unspecified; E44.1 Mild protein-calorie malnutrition; R65.20 Severe sepsis without septic shock; J10.1 Influenza due to other identified influenza virus with other respiratory manifestations; R74.8 Abnormal levels of other serum enzymes; R73.9 Hyperglycemia, unspecified; E55.9 Vitamin D deficiency, unspecified; E66.3 Overweight; I48.0 Paroxysmal atrial fibrillation; Z68.30 Body mass index [BMI] 30.0-30.9, adult; Z90.710 Acquired absence of both cervix and uterus; Z81.8 Family history of other mental and behavioral disorders; Z80.9 Family history of malignant neoplasm, unspecified; Z88.2 Allergy status to sulfonamides; Z79.82 Long term (current) use of aspirin; Z79.899 Other long term (current) drug therapy

== ENCOUNTER → 2018-02-27 | Outpatient (CLI) | payer OTHER ==
[~2018-02-27] MED LIST changes: +AMIODARONE HCL200 MG PO; +CO Q10100 MG PO; +COREG3.125 MG PO; +COUMADIN3 M1 PO; +COUMADIN7.5 M1 PO; +LOPRESSOR50 M1 PO; +NITROGLYCERIN0.4 MG SL; +WARFARIN SOD5 MG PO
[2018-02-27 13:38] LABS: INTERNATIONAL NORM RATIO 1.9 (2.0-3.5)
== END | disposition home or self-care (01) ==
LOC: LAB 12:22
PROVIDERS: Internal Medicine Cardiovascular Disease
DX: I48.91 Unspecified atrial fibrillation (principal); I48.0 Paroxysmal atrial fibrillation

== ENCOUNTER → 2018-03-18 | Outpatient (CLI) | payer OTHER ==
[2018-03-18 12:19] LABS: INTERNATIONAL NORM RATIO 2.1 (2.0-3.5)
== END | disposition home or self-care (01) ==
LOC: LAB 11:31
PROVIDERS: Internal Medicine Cardiovascular Disease
DX: I48.0 Paroxysmal atrial fibrillation (principal)

== ENCOUNTER → 2018-05-21 | Outpatient (CLI) | payer OTHER | END | disposition home or self-care (01) | LOC: CARD 13:00 | DX: I35.1 Nonrheumatic aortic (valve) insufficiency (principal) ==

== ENCOUNTER → 2018-06-13 | Outpatient (CLI) | payer OTHER | END | disposition home or self-care (01) | LOC: CARD 11:44 | DX: I34.0 Nonrheumatic mitral (valve) insufficiency (principal); I50.43 Acute on chronic combined systolic (congestive) and diastolic (congestive) heart failure; I42.8 Other cardiomyopathies ==

== ENCOUNTER 2020-03-13 04:46 | Observation (INO) | payer OTHER ==
[~2020-03-13] VITALS: Ht 167.6 cm; Wt 84.0 kg
[2020-03-13] VITALS (7 sets, daily range): BP systolic 99–126; BP diastolic 62–68
--- NOTE | 2020-03-13 05:03 | NUR ---
NORMAL SALINE BAG WILL NOT SCAN.
[2020-03-13 05:21] LABS: ACT PARTIAL THROMBO TIME 35.7 SECONDS (20.0-32.1); INTERNATIONAL NORM RATIO 1.6 (2.0-3.5)
[2020-03-13 05:27] LABS: ALBUMIN 3.4 gm/dl (3.1-4.5); ALKALINE PHOSPHATASE 62 U/L (45-117); BUN 18 mg/dl (7-24); CHLORIDE 108 mmol/L (98-107); CREATININE 0.87 mg/dL (0.55-1.02); POTASSIUM 3.8 mmol/L (3.5-5.1); SGOT/AST 22 IU/L (3-35); SGPT/ALT 37 U/L (12-78); SODIUM 140 mmol/L (136-145); TOTAL PROTEIN 7.1 gm/dL (6.4-8.2); TROPONIN I 0.035 ng/ml (<0.045)
[2020-03-13 05:53] LABS: BASO # 0.1 10*3/uL (0.0-0.1); BASO % 0.6 % (0.0-1.0); EOS # 0.3 10*3/uL (0.0-0.4); HEMATOCRIT 39.6 % (37.0-47.0); LYMPH # 4.1 10*3/uL (1.3-4.4); LYMPH % 43.8 % (27.0-41.0); MEAN CELL VOLUME 93.2 fl (81.0-99.0); MEAN CORPUSCULAR HGB 29.4 pg (27.0-31.0); MEAN CORPUSCULAR HGB CONC 31.6 g/dl (33.0-37.0); MEAN PLATELET VOLUME 9.4 fl (9.6-12.3); MONO # 0.7 10*3/uL (0.1-1.0); MONO % 7.1 % (3.0-9.0); NEUT # 4.2 10*3/uL (2.3-7.9); NEUT % 44.9 % (47.0-73.0); PLATELET COUNT AUTOMATED 312 10*3/uL (130-400); RED BLOOD COUNT 4.25 10*6/uL (4.10-5.10); RED CELL DISTRI WIDTH 13.2 % (0-14.5); WHITE BLOOD COUNT 9.4 10*3/uL (4.8-10.8)
--- NOTE | 2020-03-13 06:37 | NUR ---
PER [employer]ORTS ACTIVITIES FOUL JUDGE PT TO GO UP AFTER SHIFT CHANGE.
--- NOTE | 2020-03-13 06:45 | NUR ---
PT DENIES WOUNDS.
--- NOTE | 2020-03-13 07:08 | NUR ---
NURSE REPORT ACCEPTED. ROOM ASSIGNED, AWAITING NURSE ASSIGNMENT SO ADMISSION MAY PROCEED.
--- NOTE | 2020-03-13 08:00 | NUR ---
Time: 08 A 59 year old FEMALE admitted to 5E under services of DONATO MARIE DO. Pt. arrived via BED from ER. Chief complaint: CHEST PAIN. TI MORIN
[2020-03-13] MEDS ORDERED: ENALAPRIL MALE2.5 MG PO (09:13)
[2020-03-13] MEDS ORDERED: METOPROLOL SUC100 M1 PO (09:13)
[2020-03-13] MEDS ORDERED: WARFARIN SOD5 MG PO (09:15)
--- NOTE | 2020-03-13 10:55 | NUR ---
PATIENT REFUSED LOVENOX INJECTION. SHE IS AWARE OF HER INR RESULTS AND STATES SHE WILL SPEAK TO HER PHYSICIAN.
--- NOTE | 2020-03-13 16:51 | NUR ---
DR ASHLEY HERE TO SEE PT
--- NOTE | 2020-03-13 19:10 | NUR ---
Discharge instructions reviewed with patient/family. Patient receptive and verbalizes understanding. Follow-up care arranged. Written instructions given to patient/family. DAVIDSON SHOEMAKER
--- NOTE | 2020-03-13 19:26 | NUR ---
PATIENT ESCORTED OFF FLOOR VIA CARE ATTENDANT D/T DISCHARGE.
== END 2020-03-13 19:26 | disposition home or self-care (01) ==
LOC: ED 04:46 → 5E 06:02 → EDHOLD 06:02 → 5E 06:02
PROVIDERS: Emergency Medicine Emergency Medical Services; ADMIT Family Medicine; ATTEND Family Medicine
DX: R07.89 Other chest pain (principal); I05.9 Rheumatic mitral valve disease, unspecified; I50.42 Chronic combined systolic (congestive) and diastolic (congestive) heart failure; R73.9 Hyperglycemia, unspecified; E44.0 Moderate protein-calorie malnutrition

== ENCOUNTER → 2020-03-26 | Outpatient (CLI) | payer OTHER ==
[~2020-03-26] MED LIST changes: +ENALAPRIL MALE2.5 MG PO; +METOPROLOL SUC100 M1 PO
--- NOTE | 2020-03-26 11:40 | NUR ---
INFORMED CONSENT OBTAINED FOR LEXISCAN NUCLEAR STRESS TEST WITH DR. ASHLEY. RESTING EKG NSR WITH OCCASIONAL PVC WITH A RESTING HR OF 58 WITH BP OF 106/68. LUNGS CLEAR WITH SPO2 OF 98% ON ROOM AIR. PT COMPLETED A 1:00 LEXISCAN PROTOCOL RECEIVING LEXISCAN 0.4 MG IV OVER 10 SECONDS. HAD C/O CHEST DISCOMFORT THAT WAS RELIEVED IN RECOVERY. EKG NONDIAGNOSTIC WITH ST FLATTENING THROUGHOUT. HAD A PEAK HR OF 84 WITH BP OF 112/72. LAST RECOVERY HR OF 79 WITH BP OF 102/64. AWAITING SCANNING IN STABLE CONDITION
== END | disposition home or self-care (01) ==
LOC: CARD 02:39
PROVIDERS: ATTEND Internal Medicine Cardiovascular Disease
DX: I25.119 Atherosclerotic heart disease of native coronary artery with unspecified angina pectoris (principal)

== ENCOUNTER → 2023-02-13 | Outpatient (CLI) | payer OTHER | END | disposition home or self-care (01) | LOC: CARD 00:50 | PROVIDERS: ATTEND Internal Medicine Cardiovascular Disease | DX: I07.1 Rheumatic tricuspid insufficiency (principal); Z95.2 Presence of prosthetic heart valve ==